=== PATIENT | male | born 1945 | race Caucasian/White ===

== ENCOUNTER → 2019-06-08 | Outpatient (REF) | payer MEDICARE | LOC: M LAB REF 13:45 | PROVIDERS: ATTEND Internal Medicine Pulmonary Disease | DX: R05 Cough (principal) ==

== ENCOUNTER → 2021-03-21 | Outpatient (CLI) | payer MEDICARE ==
[~2021-03-21] MED LIST: ALBU83IN NEB; ASPI81TA26 PO; ATOR1TAB19 PO; BREO1INH INH; FINA5TAB2 PO; HOME MED LIST COMPLETE! XX SCH; LIDOCAINE 1% MDV 20ML VIAL As Ordered ONE; LOSA100T50 PO; MUCI600T31 PO; PROAAER10 INH; SOTA120T PO; SPIR12.9 INH; SPIR1TAB34 PO; TAMS1CAP17 PO; TRAM50TA2 PO
[2021-03-21 11:50] VITALS: BP 150/67
--- NOTE | 2021-03-21 12:02 | REP ---
INDICATION: expiration, s/p RUL lung biopsy. COMPARISON: CT images today from CT-guided biopsy. TECHNIQUE: Frontal view chest. FINDINGS: There is no pneumothorax status post right lung biopsy. Mild focal postprocedure hemorrhage is seen in the right upper lobe. There are bands of parenchymal opacity in each lung base. The heart is not significantly enlarged. There is calcific plaque of the thoracic aorta. IMPRESSION: No pneumothorax status post right lung biopsy. <Electronically signed by Mehrdad Sifuentes > 03/21/21 [id number]
--- NOTE | 2021-03-21 16:36 | REP ---
INDICATION: RUL LUNG NODULE. COMPARISON: None. TECHNIQUE: The procedure is performed by BILLY Nix, under the direct supervision of Dr. Sifuentes. The risks and benefits of the procedure were explained to the patient and informed consent was obtained both orally and written. Directly prior to the start of the procedure, a formal timeout was done in the exam room. The right upper lobe lung nodule was localized using CT guidance. Skin was prepped and draped in the usual sterile fashion. Ten ml of 1% lidocaine 10 mg/ml was used as a local anesthetic. FINDINGS: Using CT guidance a 19/20 gauge coaxial needle biopsy system was inserted and advanced into the nodule. Six core biopsy samples were obtained and sent to the lab. CT images obtained directly after the biopsy show no evidence of pneumothorax. After the appropriate amount of monitored convalescence the patient was discharged from the department. IMPRESSION: Technically successful right upper lobe lung nodule biopsy yielding 6 core biopsy specimens. <Electronically signed by Tianna Roberts > 03/21/21 1101 <Electronically signed by Mehrdad Sifuentes > 03/21/21 [id number]
== END ==
LOC: M IRPRO 08:10
PROVIDERS: ATTEND Internal Medicine Pulmonary Disease
DX: C34.11 Malignant neoplasm of upper lobe, right bronchus or lung (principal)